=== PATIENT | male | born 1975 | race Caucasian/White ===

== ENCOUNTER 2019-09-22 18:14 | Emergency (ER) | payer OTHER ==
[~2019-09-22] VITALS: Ht 182.9 cm; Wt 99.8 kg
[2019-09-22] MEDS ORDERED: KEFLEX500 M1 PO (18:46)
[2019-09-22 19:39] VITALS: BP 142/90
== END 2019-09-22 19:40 | disposition home or self-care (01) ==
LOC: M.ERS 18:14
DX: S61.412A Laceration without foreign body of left hand, initial encounter (principal); W26.8XXA Contact with other sharp object(s), not elsewhere classified, initial encounter; Y93.89 Activity, other specified; Y92.89 Other specified places as the place of occurrence of the external cause; Y99.8 Other external cause status